=== PATIENT | male | born 1970 | race Caucasian/White ===

== ENCOUNTER 2023-01-08 04:08 | Emergency (ER) | payer OTHER, SELFPAY ==
[2023-01-08 04:20] VITALS: BP 131/92; PULSE 89; RESP 22; O2SAT 97; BMI 36.3
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
[2023-01-08 05:39] LABS: Alveolar-Arterial Oxygen Gradi 2.1 mmHg (5-10); Arterial Blood Gas Hematocrit 45.8 % (42-52); Blood Gas Allen Test Pos; Blood Gas Sample Site Brachial, right; Blood Gas Sample Type Arterial; HGB O2 Sat 94.5 % (95-100); Methemoglobin 0.3 % (0.4-1.5); Total Hemoglobin 14.9 g/dL (14-18)
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
[2023-01-08 06:00] VITALS: RESP 16; O2SAT 98
== END 2023-01-08 06:20 | disposition home or self-care (01) ==
PROVIDERS: Emergency Provider Emergency Medicine
DX: T59.811A Toxic effect of smoke, accidental (unintentional), initial encounter (principal); T25.122A Burn of first degree of left foot, initial encounter; T25.121A Burn of first degree of right foot, initial encounter; X00.8XXA Other exposure to uncontrolled fire in building or structure, initial encounter
CPT/HCPCS: 36600; 71045; 82810; 99283

== ENCOUNTER 2025-01-01 12:40 | Emergency (ER) | payer OTHER, SELFPAY ==
[2025-01-01 13:14] VITALS: BP 147/90; PULSE 110; RESP 16; TEMP 36.7; O2SAT 98
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
[2025-01-01 14:09] LABS: Basophils # 0.1 10^3/uL (0.0-0.1); Basophils % 0.7 %; Eosinophils # 0.4 10^3/uL (0.0-0.8); Eosinophils % 5.2 %; Hematocrit 39.2 % (37-53); Lymphocytes % 24.5 %; Mean Corpuscular HGB Conc 32.7 g/dL (30-55); Mean Corpuscular Hemoglobin 28.8 pg (27-33); Mean Corpuscular Volume 88.3 fl (82-101); Mean Platelet Volume 8.2 fL (7.4-10.4); Monocytes # 0.8 10^3/uL (0.2-0.9); Monocytes % 9.1 %; Neutrophils # 4.84 10^3/uL (1.8-7.7); Neutrophils % 58.4 %; Nucleated Red Blood Cells % 0 %; Platelet Count 408 10^3/cmm (157-399); Red Blood Count 4.44 10^6/uL (3.85-5.65); Red Cell Distribution Width 12.6 % (12.1-15.1); White Blood Count 8.28 10^3/uL (3.29-11.43)
[2025-01-01 14:24] LABS: Alanine Aminotransferase 37 U/L (0-41); Albumin Level 3.7 g/dL (3.5-5.2); Alkaline Phosphatase 112 U/L (40-130); Anion Gap 13.2 (5-19); Aspartate Amino Transferase 18 U/L (0-40); Blood Urea Nitrogen 17 mg/dL (6-20); Calcium 8.8 mg/dL (8.5-10.5); Carbon Dioxide 23 mmol/L (22-29); Chloride 105 mmol/L (98-107); Creatinine Clr Calc Pharmacy 138.0737; Globulin 3.3 g/dL (1.3-4.6); Glomerular Filtration Rate 117.5 mL/min (90-130); Glucose 99 mg/dL (65-115); Osmolality Calculated 286 mOsm/kg (285-295); Potassium 4.2 mmol/L (3.5-5.1); Sodium 137 mmol/L (136-145); Total Bilirubin 0.2 mg/dL (0.15-1.2)
== END 2025-01-01 14:53 | disposition home or self-care (01) ==
PROVIDERS: Family Medicine; Emergency Provider Physician Assistant
DX: T85.698A Other mechanical complication of other specified internal prosthetic devices, implants and grafts, initial encounter (principal); X58.XXXA Exposure to other specified factors, initial encounter; Z98.890 Other specified postprocedural states
CPT/HCPCS: 36415; 80053; 85025; 99283; 99291